=== PATIENT | male | born 1990 | race Caucasian/White ===

== ENCOUNTER 2022-05-24 08:28 | Emergency (ER) | payer BC, SELFPAY ==
[2022-05-24 08:35] VITALS: BP 120/82; PULSE 67; RESP 16; TEMP 36.2; O2SAT 96; BMI 27.3
--- NOTE | 2022-05-24 09:02 | ED_ITS ---
HPI - General Adult General Time Seen by Provider: 09:04 Date Seen: 05/24/22 Chief complaint: Abdominal Pain Stated complaint: Pain in R abdomin for 3days and covid positive Time Seen by Provider: 05/24/22 08:32 Source: patient, RN notes reviewed and manager salt Mode of arrival: ambulatory Limitations: no limitations History of Present Illness HPI narrative: Patient is a 32-year-old male coming in with right-sided abdominal pain. Patient started just feeling achy and not well on Friday. Took a COVID test on Friday which was positive. He was feeling a bit better Friday except started to develop some right-sided abdominal pain. Today it is intensified in the right abdomen. He points to the right mid abdomen where he feels it most. His appetite was diminished last night, tried to force himself to eat something around 7. He has had some nausea but no vomiting. Had a soft stool yesterday, denies any urinary symptoms. He has had no prior abdominal surgeries, no family history of appendicitis. He states breathing, movement hurt into the abdomen where the pain is. Related Data Previous Rx's Medication Instructions Recorded celecoxib 200 mg capsule 200 mg PO BID #20 caps 02/27/22 tramadol 50 mg tablet See Rx Instructions PO Q6H PRN 02/27/22 pain #30 tabs hydrocodone 5 mg-acetaminophen 325 1 tab PO Q6H PRN pain #10 tabs 05/24/22 mg tablet Allergies Allergy/AdvReac Type Severity Reaction Status Date / Time amoxicillin Allergy Intermediate Rash Verified 02/27/22 14:31 latex Allergy Intermediate Rash Verified 02/27/22 14:31 Review of Systems Status of ROS: Reports: 10 or more systems reviewed and unremarkable except as noted in History and below [facility] Surgical History Status post tonsillectomy and adenoidectomy ?Z90.89 - Acquired absence of other organs (ICD-10) Social History Smoking Status: Never smoker Do you use any of these nicotine containing products: None Second hand tobacco smoke exposure: No How often do you have a drink containing alcohol: 2-4 times a month How many standard drinks containing alcohol do you have on a typical day: 3 or 4 How often do you have six or more drinks on one occasion: Weekly AUDIT-C Alcohol total score: 6 Non-prescribed substance use: denies use service: No Exam Const: Vital Signs, click to edit/add: Vital Signs - 24 hr 05/24/22 08:35 05/24/22 10:54 Temperature 97.2 F L Pulse Rate [Pulse Oximeter] 67 72 Respiratory Rate 16 18 Blood Pressure [Ri ght Upper Arm] 120/82 109/70 Pulse Oximetry 96 Oxygen Delivery Me thod Room Air Documenting provider has reviewed patient's vital signs: yes Common normals: average body habitus, oriented x3, no limitations, healthy appearing and alert General appearance: cooperative, well kempt and well developed Other: Definitely seems to have pain in his abdomen with attempts at sitting up or moving. Nursing staff noted he looked quite uncomfortable walking in. HENMT: Common normals: normocephalic and head/scalp atraumatic Head and scalp: normocephalic and atraumatic Eye: Common normals: PERRL, EOMs intact bilaterally, conjunctivae normal and no scleral icterus Conjunctiva: conjunctiva(e) normal Pupil: PERRL Neck & C-Spine: Common normals: full ROM, no lymphadenopathy and supple Resp: Common normals: normal respiratory effort, no retractions, no use of accessory muscles and clear to auscultation bilaterally Auscultation: clear to auscultation bilaterally Cardio: Common normals: regular rate, regular rhythm, S1 normal heart sound, S2 normal heart sound, no gallops, no clicks and no murmurs Rate: regular rate Rhythm: regular rhythm Heart sounds: S1 normal and S2 normal GI: Common normals: Normal to inspection, nondistended, normoactive bowel sounds present Other: Patient states it hurts to just place the stethoscope on his abdomen. Overall abdomen is soft but he has referred pain back into the mid right abdomen when I palpate anywhere, presumptive positive peritoneal signs. Does not have significant guarding at this time, overall abdomen is soft despite his level of reported discomfort on examination. I feel no masses. Neuro: Common normals: oriented x3 Sensorium/orientation: alert Psych: Appearance: well kempt Course Course Hospital Course: I have asked him for NPO status. Will initiate IV Toradol and Zofran for symptoms. Proceed with CT abdomen pelvis with IV contrast and obtain appropriate labs. Certainly intra-abdominal pathology including surgical issues such as appendicitis are consideration. This does not sound like a urologic kidney stone presentation but will consider this if we are finding no other etiology to explain this. Gallbladder pathology as well as bowel pathology will be considered. If patient's pain is not controlled with Toradol, will move to morphine. Will obtain COVID antigen for surgical staff in case this indeed is a surgical abdomen. Will see if patient can give us urinalysis as well. Consultations Consultation #1: Our general surgeon was consulted, she did come over and see the patient. She reviewed discharge recommendations and request for some [place] for him to have. Baseline he will do ibuprofen 600 mg 3 times a day for 7 days. She feels he is stable to discharge to home. Please see Dr. Carrizales's consultation. Time: 11:10 Vital Signs Vital signs: Initial Vital Signs Temperature 97.2 F L 05/24/22 08:35 Temperature Source Temporal Artery Scan 05/24/22 08:35 Pulse Rate 67 05/24/22 08:35 Pulse Rhythm Regular 05/24/22 08:35 Respiratory Rate 16 05/24/22 08:35 Blood Pressure 120/82 05/24/22 08:35 Blood Pressure Mean 94 05/24/22 08:35 Blood Pressure Position Supine 05/24/22 08:35 Pulse Oximetry 96 05/24/22 08:35 Oxygen Delivery Method Room Air 05/24/22 08:35 Vital Signs Temperature 97.2 F L 05/24/22 08:35 Pulse Rate 67 05/24/22 08:35 Respiratory Rate 16 05/24/22 08:35 Blood Pressure 120/82 05/24/22 08:35 Pulse Oximetry 96 05/24/22 08:35 Oxygen Delivery Method Room Air 05/24/22 08:35 Temperature 97.2 F L 05/24/22 08:35 Pulse Rate 72 05/24/22 10:54 Respiratory Rate 18 05/24/22 10:54 Blood Pressure 109/70 05/24/22 10:54 Pulse Oximetry 96 05/24/22 08:35 Oxygen Delivery Method Room Air 05/24/22 08:35 Medical Decision Making Lab Data Lab results reviewed: Yes I reviewed the patient's lab results Labs: Lab Results 05/24/22 05/24/22 Range/Units 09:00 09:22 WBC 6.95 (4.50-11.00) K/uL RBC 4.39 (4.30-5.90) m/uL Hgb 13.6 (13.5-17.5) gm/dL Hct 39.9 (37.0-53.0) % MCV 91 (80-100) fL MCH 31 (26-34) pg MCHC 34 (32-36) gm/dL RDW Coeff of Jocelin 11.7 (11.5-15.5) % Plt Count 229 (140-440) K/uL Neut % (Auto) 62.1 (42.0-72.0) % Lymph % (Auto) 25.3 (20-44) % [place] % (Auto) 8.5 (0.0-11.0) % Eos % (Auto) 3.7 (0.0-7.0) % Baso % (Auto) 0.3 (0.0-3.0) % Neut # (Auto) 4.31 (1.7-7.0) K/uL Lymph # (Auto) 1.76 (0.90-2.90) K/uL [place] # (Auto) 0.60 (0.00-0.90) K/UL Eos # (Auto) 0.26 (0.00-0.50) K/uL Baso # (Auto) 0.02 (0.00-0.30) K/uL Sodium 139 (135-149) mmol/L Potassium 4.4 (3.6-5.1) mmol/L Chloride 105 (96-114) mmol/L Carbon Dioxide 27 (20-32) mmol/L BUN 14 (5-24) mg/dL Creatinine 0.9 (0.5-1.5) mg/dL Estimated Creat Clear 120.54 Estimated GFR 116 ml/min Glucose 92 (60-115) mg/dL Lactate 0.9 (0.5-1.9) mmol/L Calcium 8.7 (8.4-10.6) mg/dL Total Bilirubin 0.4 (0.1-1.5) mg/dL AST 25 (12-35) U/L ALT 23 (4-50) U/L Alkaline Phosphatase 71 (40-150) U/L C-Reactive Protein 1.3 H (0.5-1.0) mg/dL Total Protein 7.2 (6.0-8.3) g/dL Albumin 4.3 (3.3-5.0) g/dL Urine Color Yellow (Yellow) Urine Appearance Clear (Clear) Urine pH 6.0 (5.0-8.5) Ur Specific [place] <= 1.005 (1.000-1.030) Urine Protein Negative (Negative) Urine Glucose (UA) Negative (Negative) Urine Ketones Negative (Negative) Urine Blood 3+ A (Negative) Urine Nitrite Negative (Negative) Urine Bilirubin Negative (Negative) Urine Urobilinogen 0.2 (0.2-1.0) Ur Leukocyte Esterase Negative (Negative) Urine RBC 2-5 A (0-2) Urine WBC 0-2 (0-5) Ur Squamous Epith Cells None (None-Few) Urine Bacteria None (None) SARS-CoV-2 Ag (Rapid) Negative (Negative) Imaging Data CT scan - abdomen: Attestation: I have reviewed the pertinent imaging results. Radiologist's impression: Patient: AYDIN SPEARS Facility:?[facility] Patient ID:?[id number] Site Patient ID:?[id number]. Site :?[id number] Study:?CT Abdomen/Pelvis W ISOVUE 370-05/24/2022 9:33:33 AM Ordering Physician:Corry Sellers Final Report: Indication: Right-sided abdominal pain Technique: Volumetric multidetector CT images of the abdomen and pelvis were obtained after the administration of intravenous contrast. 93 cc Isovue 370 low osmolar intravenous contrast Comparison: None available. Findings: The lung bases are clear. The liver is normal in attenuation without intrahepatic biliary ductal dilatation. The portal vein is patent. The gallbladder is unremarkable without evidence of radiopaque calculus. There is no significant common biliary ductal dilatation or abrupt cut off. The spleen is normal in enhancement and size. There is a small hiatal hernia. The pancreas is normal in enhancement without significant atrophy. The adrenal glands are unremarkable. The kidneys demonstrate preserved corticomedullary differentiation without evidence of obstructive uropathy. There is moderate stool seen throughout the colon with decompressed appearance of the distal colon. There is minimal distal colonic diverticulosis without overt pericolonic inflammatory change. The appendix is unremarkable. There is no significant mesenteric, retroperitoneal, or pelvic sidewall lymph nodes. The aorta is nonaneurysmal. There is no significant atherosclerotic disease zachery reciated. The solid pelvic viscera are grossly unremarkable. Demonstration of focal inflammatory change within the right upper quadrant ventral omentum seen best on series 2 image 67 and 68. There is no free fluid or free air. The anterior abdominal wall is intact without significant hernias. Lumbar vertebral body heights are grossly maintained with mild straightening of the normal lumbar lordosis. Impression: Demonstration of a focus of inflammatory change in the anterior epigastric omentum seen best on series 2, image 67 likely representing a focus of omental infarction. There is presence of a nearby ligamentum teres without definite evidence of recanalization of the umbilical vein. Correlate with history of clinical tenderness. Otherwise, no acute intra-abdominal abnormality is appreciated. Please note that all CT scans at this facility use dose modulation, iterative reconstruction, and/or weight-based dosing when appropriate to reduce radiation dose to as low as reasonably achievable. Dictated by Drew Calderon MD @ 05/24/2022 10:05:49 AM (Electronic Signature) Critical Care Time Critical Care Time Critical Care Time: No Discharge Plan Discharge Clinical Impression: Omental infarction Patient Disposition: Home, Self-Care Condition: Stable Additional Instructions: Take ibuprofen 600 mg 3 times a day for 7 days. Can use [place] which is hydrocodone with Tylenol for more severe pain, follow bottle directions for dosing. If your requiring use of P[place], may need to use MiraLax and or senna to avoid constipation from narcotics. As per the general surgeon's recommen dations, follow a bland diet for 2-3 days and if feeling better can advanced diet as tolerated back to normal. Should you develop severe pain, have vomiting, develops fevers with these symptoms, have further concerns, do recommend re-evaluation. Activity Level: Activity as Tolerated Prescriptions: New hydrocodone-acetaminophen 5-325 mg tablet 1 tab PO Q6H PRN (Reason: pain) Qty: 10 0RF No Action tramadol 50 mg tablet See Rx Instructions PO Q6H PRN (Reason: pain) Qty: 30 0RF Rx Instructions: 50-100 mg orally every 6 hours PRN; celecoxib 200 mg capsule 200 mg PO BID Qty: 20 1RF Follow Up/Referrals: Luis Enrique Rm MD [Primary Care Provider] - Stand Alone Forms: [facility] Info Instructions
[2022-05-24 09:09] LABS: Basophils Absolute Auto 0.02 K/uL (0.00-0.30); Basophils Percent Auto 0.3 % (0.0-3.0); Eosinophils Absolute Auto 0.26 K/uL (0.00-0.50); Eosinophils Percent Auto 3.7 % (0.0-7.0); Hematocrit 39.9 % (37.0-53.0); Hemoglobin* 13.6 gm/dL (13.5-17.5); Immature Granulocytes Abs Auto 0.01 K/uL (0.00-0.30); Immature Granulocytes Pct Auto 0.1 %; Lactate* 0.9 mmol/L (0.5-1.9); Lymphocytes Absolute Auto 1.76 K/uL (0.90-2.90); Lymphocytes Percent Auto 25.3 % (20-44); Mean Corpuscular HGB Conc 34 gm/dL (32-36); Mean Corpuscular Hemoglobin 31 pg (26-34); Mean Corpuscular Volume 91 fL (80-100); Monocytes Percent Auto 8.5 % (0.0-11.0); Neutrophils Absolute Auto 4.31 K/uL (1.7-7.0); Neutrophils Percent Auto 62.1 % (42.0-72.0); Platelet Count* 229 K/uL (140-440); RDW Coefficient of Variation % 11.7 % (11.5-15.5); Red Blood Count 4.39 m/uL (4.30-5.90); White Blood Count* 6.95 K/uL (4.50-11.00)
[2022-05-24 09:12] LABS: Slide Review Reflex No
[2022-05-24 09:25] LABS: Albumin* 4.3 g/dL (3.3-5.0); Chloride* 105 mmol/L (96-114); Sodium* 139 mmol/L (135-149)
[2022-05-24 09:26] LABS: Potassium* 4.4 mmol/L (3.6-5.1)
[2022-05-24 09:27] LABS: Creatinine* 0.9 mg/dL (0.5-1.5); Est. Creatinine Clearance* 120.54; Estimated Glomerular Filt Rate 116 ml/min
[2022-05-24 09:28] LABS: Bilirubin Total* 0.4 mg/dL (0.1-1.5); Carbon Dioxide* 27 mmol/L (20-32)
[2022-05-24 09:29] LABS: Alanine Aminotransferase* 23 U/L (4-50); Alkaline Phosphatase* 71 U/L (40-150); Aspartate Amino Transferase* 25 U/L (12-35); Blood Urea Nitrogen* 14 mg/dL (5-24); Calcium* 8.7 mg/dL (8.4-10.6); Glucose* 92 mg/dL (60-115); Total Protein* 7.2 g/dL (6.0-8.3)
[2022-05-24 09:31] LABS: C Reactive Protein* 1.3 mg/dL (0.5-1.0)
[2022-05-24 09:59] LABS: Appearance Urine Clear (Clear); Bilirubin Urine Negative (Negative); Blood Urine 3+ (Negative); Color Urine Yellow (Yellow); Glucose Urine Negative (Negative); Ketones Urine Negative (Negative); Leukocyte Esterase Urine Negative (Negative); Nitrite Urine Negative (Negative); Protein Urine Negative (Negative); Specific Gravity Urine <= 1.005 (1.000-1.030); Urobilinogen Urine 0.2 (0.2-1.0)
[2022-05-24 10:09] LABS: WBC Urine 0-2 (0-5)
[2022-05-24 10:19] LABS: SARS Antigen* Negative (Negative)
[2022-05-24 10:54] VITALS: BP 109/70; PULSE 72; RESP 18
--- NOTE | 2022-05-24 10:55 | ED.NURSE ---
Dr. Love, surgery , in room with pt
--- NOTE | 2022-05-24 11:06 | P.GSCN_ITS ---
History of Present Illness Consult details Date Seen: 05/24/22 Consult date: 05/24/22 Narrative: 32-year-old male presented to emergency room with right-sided abdominal pain and I was asked by Dr. Saeed to see him in consultation. Patient states that on Friday he had body aches and tested positive for COVID. His symptoms were improving but then on Friday he all of a sudden developed right sided abdominal pain. The pain was sharp and worse with movement or bending. The pain was not getting better and he presented today for evaluation. Patient was passing gas. His last bowel movement was yesterday. He was tolerating regular diet but was not very hungry yesterday. In the emergency room he was found to have a normal WBC with minimally elevated CRP at 1.3. An abdominal CT was obtained that showed a small area of omental infarct on the right side with no dilated small large intestine. No other intra-abdominal pathology was noted. Review of Systems Narrative: General: no fevers HENT: no problems swallowing CV: Having some trouble taking a deep breath due to abdominal pain. Resp: no cough GI: See above : no dysuria, no increased urinary frequency, no hematuria Skin: no new rashes Musculoskeletal: no back pain Neuro: Patient is deaf Psyche: no depression, no anxiety PFSH PFSH Surgical History Status post tonsillectomy and adenoidectomy ?Z90.89 - Acquired absence of other organs (ICD-10) Social History Smoking Status: Never smoker Do you use any of these nicotine containing products: None Second hand tobacco smoke exposure: No How often do you have a drink containing alcohol: 2-4 times a month How many standard drinks containing alcohol do you have on a typical day: 3 or 4 How often do you have six or more drinks on one occasion: Weekly AUDIT-C Alcohol total score: 6 Non-prescribed substance use: denies use service: No Meds Home Medications and Allergies Allergies Allergy/AdvReac Type Severity Reaction Status Date / Time amoxicillin Allergy Intermediate Rash Verified 02/27/22 14:31 latex Allergy Intermediate Rash Verified 02/27/22 14:31 Exam Narrative: Exam Narrative: General appearance: Alert, cooperative, and in no distress Pulmonary: Chest symmetric, lungs clear bilaterally Cardiovascular Heart: Regular rate and rhythm, S1, S2, no murmurs/rubs/gallops Gastrointestinal Abdominal: soft, not distended, tender to palpation in epigastrium and right mid abdomen, no tenderness to palpation on the left side. Skin: Normal skin color, texture, and turgor. No rashes or lesions. Psychiatric: Alert, cooperative, normal affect. Const: Vital Signs, click to edit/add: Vital Signs - 24 hr 05/24/22 08:35 05/24/22 10:54 Temperature 97.2 F L Pulse Rate [Pulse Oximeter] 67 72 Respiratory Rate 16 18 Blood Pressure [Ri ght Upper Arm] 120/82 109/70 Pulse Oximetry 96 Oxygen Delivery Me thod Room Air Results Labs Labs: Abnormal lab results 05/24/22 05/24/22 Range/Units 09:00 09:22 C-Reactive Protein 1.3 H (0.5-1.0) mg/dL Urine Blood 3+ A (Negative) Urine RBC 2-5 A (0-2) Diabetes panel 05/24/22 Range/Units 09:00 Sodium 139 (135-149) mmol/L Potassium 4.4 (3.6-5.1) mmol/L Chloride 105 (96-114) mmol/L Carbon Dioxide 27 (20-32) mmol/L BUN 14 (5-24) mg/dL Creatinine 0.9 (0.5-1.5) mg/dL Glucose 92 (60-115) mg/dL Calcium 8.7 (8.4-10.6) mg/dL AST 25 (12-35) U/L ALT 23 (4-50) U/L Alkaline Phosphatase 71 (40-150) U/L Total Protein 7.2 (6.0-8.3) g/dL Albumin 4.3 (3.3-5.0) g/dL Calcium panel 05/24/22 Range/Units 09:00 Calcium 8.7 (8.4-10.6) mg/dL Albumin 4.3 (3.3-5.0) g/dL Pituitary panel 05/24/22 Range/Units 09:00 Sodium 139 (135-149) mmol/L Potassium 4.4 (3.6-5.1) mmol/L Chloride 105 (96-114) mmol/L Carbon Dioxide 27 (20-32) mmol/L BUN 14 (5-24) mg/dL Creatinine 0.9 (0.5-1.5) mg/dL Glucose 92 (60-115) mg/dL Calcium 8.7 (8.4-10.6) mg/dL Adrenal panel 05/24/22 Range/Units 09:00 Sodium 139 (135-149) mmol/L Potassium 4.4 (3.6-5.1) mmol/L Chloride 105 (96-114) mmol/L Carbon Dioxide 27 (20-32) mmol/L BUN 14 (5-24) mg/dL Creatinine 0.9 (0.5-1.5) mg/dL Glucose 92 (60-115) mg/dL Calcium 8.7 (8.4-10.6) mg/dL Total Bilirubin 0.4 (0.1-1.5) mg/dL AST 25 (12-35) U/L ALT 23 (4-50) U/L Alkaline Phosphatase 71 (40-150) U/L Total Protein 7.2 (6.0-8.3) g/dL Albumin 4.3 (3.3-5.0) g/dL All other labs normal. Assessment and Plan Assessment and plan (1) Omental infarction: Status: Acute Plan 32-year-old male presented to emergency room with abdominal pain that is most likely due to omental infarct. I discussed with the patient through rotary slicing machine operator his laboratory findings and his CT findings. He has a small area of inflammation in the right abdomen on his CT scan. This correlates with clinical exam. Patient's vital signs are stable, his WBC is normal and he is nontoxic appearing. I think this could be managed conservatively with bland diet and anti-inflammatories. I told the patient to take 600 mg of ibuprofen 3 times a day at home. He should do a bland diet for 2-3 days. He should take ibuprofen for 7 days. We will also give him a few pills of [place] as needed for pain. If patient's pain is improving, follow up p.r.n.. If patient's pain is getting worse, he stops passing gas, or develops nausea vomiting, he was encouraged to come back to the emergency room. This was all discussed with the emergency room department physician.
== END 2022-05-24 11:26 | disposition home or self-care (01) ==
PROVIDERS: Emergency Provider Family Medicine; PCP Family Medicine
DX: K55.069 Acute infarction of intestine, part and extent unspecified (principal)
CPT/HCPCS: 36415; 74177; 80053; 81001; 83605; 85025; 86140; 87426; 96374; 96375; 99284; 99285; Q9967